=== PATIENT | female | born 1960 | race Caucasian/White ===

== ENCOUNTER 2017-08-24 15:26 | Emergency (ER) | payer OTHER ==
[2017-08-24] MEDS ORDERED: HYDROcodone/Acetaminophen 10/325 mg Tablet ONE (16:01)
--- NOTE | 2017-08-24 16:38 | CT ---
CT BRAIN WITHOUT CONTRAST 08/24/17 HISTORY: Injury. Fall. COMPARISON: None. 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 Mild atrophy. No acute hemorrhage or territorial infarction. The paranasal sinuses and mastoids are clear. IMPRESSION: No acute intracranial abnormality. POS: [facility]
--- NOTE | 2017-08-24 17:06 | CT ---
CT LUMBAR SPINE WITHOUT CONTRAST 08/24/17 HISTORY: Fall. COMPARISON: None. FINDINGS: Aortic contour is normal. No periaortic adenopathy. The paraspinal musculature is normal. No hydronep hrosis is appreciated. No acute fracture or malalignment of the lumbar spine. Moderate disc arthropathy L4-5 and L5-S1. The visualied SI joints appear unremarkable. The visualized portions of the sacrum is without fractur e. Mild bilateral neural foraminal narrowing L4-5 and L5-S1 due to posterior disc osteophyte complexe s and facet arthropathy. IMPRESSION: 1. No acute fracture or malalignment of the lumbar spine. 2. Mild neural foraminal narrowing bilaterally at L4-5 and L5-S1 due to posterior disc osteophyt e complexes and facet arthrosis. POS: [facility]
--- NOTE | 2017-08-24 17:11 | CT ---
CT THORACIC SPINE: HISTORY: Fall. TECHNIQUE: Axial images are obtained with coronal and sagittal reconstructions. FINDINGS: The thoracic spine demonstrates no evidence of acute thoracic spine fractures. Vertebral bodies and posterior elements are intact. Facets are unremarkable. The central canal and neural foramen are pa tent. IMPRESSION: Unremarkable CT thoracic spine without evidence of thoracic spine fractures. POS: [facility]
--- NOTE | 2017-08-24 17:11 | CT ---
NONCONTRAST CT CERVICAL SPINE 08/24/17 HISTORY: Injury to neck after a fall. TECHNIQUE: Contiguous axial CT images are obtained through the cervical spine from the skull base to the T2-3 le asad. Sagittal and coronal reformat images are provided. FINDINGS: There are postsurgical change related to anterior cervical fusion of the C5-6 and C6-7 levels with an terior plate and screws transfixing these levels. No hardware complication is seen. No fracture or subluxation is seen involving the cervical spine. Multilevel degenerative changes are seen with prominent facet hypertrophic changes at multiple levels. There is moderate right sided neur al foraminal narrowing at the C2-3 level related to uncinate process hypertrophy and facet degenerati ve changes. There is severe bilateral neural foraminal narrowing at C3-4 level again related to bony encroachment with facet hypertrophic changes present. Moderate to severe bilateral neural foraminal n arrowing is present at the C4-5 level again related to bone encroachment. There is uncinate process hypertrophy bilaterally at the C7-T1 level resulting in moderate to severe bilateral neural foraminal narrowing. The prevertebral soft tissues are within normal limits. Vascular calcifications are seen. IMPRESSION: 1. Multilevel degenerative changes as well as postoperative changes involving the cervical spine . No fracture or subluxation is identified. 2. Straightening of the normal cervical lordotic curvature which may be related to muscle spasm or positioning. POS: [facility]
--- NOTE | 2017-08-24 17:13 | RAD ---
FOUR VIEWS RIGHT KNEE: DATE: 08/24/17. HISTORY: Right knee injury after a fall. FINDINGS: There is no evidence of a fracture or dislocation involving the right knee. Very small suprapatellar joint effusion is present which may be physiologic in origin. No joint space narrowing is seen. IMPRESSION: No acute osseous abnormality of the right knee. POS: [facility]
== END 2017-08-24 17:37 | disposition home or self-care (01) ==
LOC: ERS 15:26
DX: S13.4XXA Sprain of ligaments of cervical spine, initial encounter (principal); S83.91XA Sprain of unspecified site of right knee, initial encounter; S30.0XXA Contusion of lower back and pelvis, initial encounter; E78.5 Hyperlipidemia, unspecified; F03.90 Unspecified dementia, unspecified severity, without behavioral disturbance, psychotic disturbance, mood disturbance, and anxiety; F17.210 Nicotine dependence, cigarettes, uncomplicated; F31.9 Bipolar disorder, unspecified; F41.9 Anxiety disorder, unspecified; I10 Essential (primary) hypertension; Z79.899 Other long term (current) drug therapy; Z71.6 Tobacco abuse counseling; W01.0XXA Fall on same level from slipping, tripping and stumbling without subsequent striking against object, initial encounter
CPT/HCPCS: 70450; 72125; 72128; 72131; 99406

== ENCOUNTER 2020-10-01 14:45 | Outpatient (CLI) | payer MEDICARE ==
[2020-10-01 16:51] LABS: Hemoglobin 12.1 g/dL (12.0-15.5); Mean Corpuscular HGB CONC 31.2 g/dL (32.0-36.0); Mean Corpuscular Hemoglobin 31.6 pg (27.0-33.0); Mean Corpuscular Volume 101.3 fl (81.6-98.3); Mean Platelet Volume 9.9 fl (7.4-10.4); Platelet Count 286 10x3/uL (150-450); RBC Distribution Width 12.7 % (11.5-14.5); Red Blood Cell (RBC) Count 3.83 10x6/uL (3.90-5.03)
[2020-10-01 16:52] LABS: Anion Gap 12 mmol/L (10-20); BUN (Urea Nitrogen) 15 mg/dL (9.8-20.1); Calc. Creatinine Clearance 0 mL/min (70-130); Calcium 8.6 mg/dL (7.8-10.44); Carbon Dioxide 28 mmol/L (22-29); Chloride 102 mmol/L (98-107); Glucose 77 mg/dL (70-105); Potassium 3.8 mmol/L (3.5-5.1); Sodium 138 mmol/L (136-145)
[2020-10-02 02:03] LABS: SARS-CoV-2 PCR by NAA Not Detected (NotDetected)
== END 2020-10-01 14:46 | disposition home or self-care (01) ==
LOC: LABBT 14:45
PROVIDERS: ATTEND Neurological Surgery
DX: Z01.818 Encounter for other preprocedural examination (principal); Z20.822 Contact with and (suspected) exposure to COVID-19; M48.02 Spinal stenosis, cervical region
CPT/HCPCS: 80048; 85027; 93005; U0003; U0005; 87635; 93010

== ENCOUNTER 2020-10-04 05:45 | Day surgery (SDC) | payer MEDICARE ==
[2020-10-03 09:21] VITALS: BMI 32.9
[2020-10-04] MEDS ORDERED: Midazolam HCl 2 mg/2 ml Vial ONE (06:19)
[2020-10-04] MEDS ORDERED: Lidocaine 2% Jelly 5 ML TUBE ONE (06:20)
[2020-10-04] MEDS ORDERED: HYDROmorphone 0.5 MG/0.5 ML SYRINGE ONE (06:20)
[2020-10-04] MEDS ORDERED: Fentanyl 100 MCG/2 ML VIAL ONE (06:20)
[2020-10-04] MEDS ORDERED: Thrombin 5000 UNITS/5 ML VIAL ONE (06:20)
[2020-10-04] MEDS ORDERED: PHENYLEPHRINE-NS 100 MCG/ML 10 ML SYRINGE ONE (07:05)
[2020-10-04] MEDS ORDERED: Ondansetron PF 4 MG/2 ML Vial ONE (07:05)
[2020-10-04] MEDS ORDERED: ePHEDrine Sulfate 50 MG/10 ML VIAL ONE (07:05)
[2020-10-04] MEDS ORDERED: Rocuronium Bromide 10 MG/ML (10ML VIAL) ONE (07:05)
[2020-10-04] MEDS ORDERED: Lidocaine 1% PF 5 ML VIAL ONE (07:05)
[2020-10-04] MEDS ORDERED: Dexamethasone 20 MG/5 ML VIAL ONE (07:05)
[2020-10-04] MEDS ORDERED: Glycopyrrolate 0.2 MG/ML 5 ML SYRINGE ONE (07:05)
[2020-10-04] MEDS ORDERED: PROPOFOL 200 MG/20 ML VIAL ONE (07:05)
[2020-10-04] MEDS ORDERED: Phenylephrine 10 MG/ML VIAL ONE (07:28)
[2020-10-04] MEDS ORDERED: SUGAMMADEX SODIUM 200 MG/2 ML VIAL ONE (08:08)
[2020-10-04] MEDS ORDERED: HYDROcodone/Acetaminophen 5/325 mg Tablet ONE ×2 (10:49→12:06)
== END 2020-10-04 12:35 | disposition home or self-care (01) ==
LOC: SDC 05:45
PROVIDERS: ATTEND Neurological Surgery
PROC: 0RG40A0 Fusion of Cervicothoracic Vertebral Joint with Interbody Fusion Device, Anterior Approach, Anterior Column, Open Approach (ICD-10-PCS; principal; 2020-10-04)
PROC: 0RT50ZZ Resection of Cervicothoracic Vertebral Disc, Open Approach (ICD-10-PCS; 2020-10-04)
DX: M47.22 Other spondylosis with radiculopathy, cervical region (principal); M47.12 Other spondylosis with myelopathy, cervical region; M48.02 Spinal stenosis, cervical region; G89.4 Chronic pain syndrome; I10 Essential (primary) hypertension; M19.90 Unspecified osteoarthritis, unspecified site; Z79.82 Long term (current) use of aspirin; Z79.899 Other long term (current) drug therapy; Z98.1 Arthrodesis status
CPT/HCPCS: 20930; 20936; 22551; 22853; 76000; C1713; C1776; J0690; J1100; J1170; J2250; J2370; J2405; J2704; J3010

== ENCOUNTER 2021-06-10 10:22 | Outpatient (CLI) | payer MEDICARE ==
[2021-06-10 16:46] LABS: SARS-CoV-2 PCR by NAA Not Detected (NotDetected)
== END 2021-06-10 10:23 | disposition home or self-care (01) ==
LOC: LABBT 10:22
PROVIDERS: ATTEND Neurological Surgery
DX: Z01.812 Encounter for preprocedural laboratory examination (principal); Z20.822 Contact with and (suspected) exposure to COVID-19
CPT/HCPCS: U0003; U0005

== ENCOUNTER 2021-06-13 08:33 | Day surgery (SDC) | payer MEDICARE ==
[2021-06-11 13:34] VITALS: BMI 33.5
[2021-06-13] MEDS ORDERED: ceFAZolin 2 GM/DEX 5% 100 ML BAG ONE (09:48)
[2021-06-13] MEDS ORDERED: Lidocaine 1% w/Epinephrine 1:100K 20 ML VIAL ONE (12:07)
[2021-06-13] MEDS ORDERED: Dexamethasone 20 MG/5 ML VIAL ONE (12:20)
[2021-06-13] MEDS ORDERED: Ondansetron PF 4 MG/2 ML Vial ONE (12:20)
[2021-06-13] MEDS ORDERED: PROPOFOL 200 MG/20 ML VIAL ONE (12:20)
[2021-06-13] MEDS ORDERED: ePHEDrine 50 MG/ML VIAL ONE (12:20)
[2021-06-13] MEDS ORDERED: Glycopyrrolate 0.2 MG/ML 5 ML SYRINGE ONE (12:20)
[2021-06-13] MEDS ORDERED: Lidocaine 1% PF 5 ML VIAL ONE (12:20)
[2021-06-13] MEDS ORDERED: Ketorolac Tromethamine 30 MG/ML VIAL ONE (12:20)
[2021-06-13] MEDS ORDERED: Fentanyl 100 MCG/2 ML VIAL ONE (12:41)
[2021-06-13] MEDS ORDERED: HYDROcodone/Acetaminophen 5/325 mg Tablet ONE (14:57)
== END 2021-06-13 16:00 | disposition home or self-care (01) ==
LOC: SDC 08:33
PROVIDERS: ATTEND Neurological Surgery
PROC: 01N50ZZ Release Median Nerve, Open Approach (ICD-10-PCS; principal; 2021-06-13)
PROC: 01N50ZZ Release Median Nerve, Open Approach (ICD-10-PCS; 2021-06-13)
DX: G56.03 Carpal tunnel syndrome, bilateral upper limbs (principal); E78.5 Hyperlipidemia, unspecified; M19.90 Unspecified osteoarthritis, unspecified site; I10 Essential (primary) hypertension; G43.909 Migraine, unspecified, not intractable, without status migrainosus; M47.819 Spondylosis without myelopathy or radiculopathy, site unspecified; M48.02 Spinal stenosis, cervical region; Z79.899 Other long term (current) drug therapy; Z98.1 Arthrodesis status
CPT/HCPCS: J1100; J1885; J2405; J2704; J3010; J3490; J7620

== ENCOUNTER 2022-07-10 13:17 | Outpatient (CLI) | payer OTHER ==
[2022-07-10 14:50] LABS: Anion Gap 12 mmol/L (10-20); BUN (Urea Nitrogen) 18 mg/dL (9.8-20.1); Calc. Creatinine Clearance 0 mL/min (70-130); Calcium 9.1 mg/dL (7.8-10.44); Carbon Dioxide 29 mmol/L (23-31); Chloride 103 mmol/L (98-107); Estimated GFR 69; Glucose 134 mg/dL (80-115); Potassium 4.1 mmol/L (3.5-5.1); Sodium 140 mmol/L (136-145)
[2022-07-10 14:51] LABS: INR-International Normal Ratio 0.9; Prothrombin Time 9.6 sec (9.5-12.1)
[2022-07-10 14:52] LABS: #Basophils 0.1 10x3/uL (0.0-0.2); #Eosinphils 0.3 10x3/uL (0.0-0.5); #Neutrophils 5.7 10x3/uL (1.5-8.4); %Basophils 0.7 % (0.0-2.0); %Eosinophils 3.2 % (0.0-6.0); %Lymphocytes 30.8 % (18.0-47.0); %Monocytes 9.4 % (0.0-10.0); %Neutrophils 55.5 % (40.0-75.0); Hemoglobin 13.4 g/dL (12.0-15.5); Mean Corpuscular HGB CONC 32.4 g/dL (32.0-36.0); Mean Corpuscular Hemoglobin 31.8 pg (27.0-33.0); Mean Corpuscular Volume 98.3 fl (81.6-98.3); Mean Platelet Volume 10.1 fl (7.4-10.4); Platelet Count 270 10x3/uL (150-450); RBC Distribution Width 11.9 % (11.5-14.5); Red Blood Cell (RBC) Count 4.21 10x6/uL (3.90-5.03); White Blood Cell (WBC) Count 10.2 10x3/uL (3.5-10.5)
== END 2022-07-10 13:18 | disposition home or self-care (01) ==
LOC: LABBT 13:17
PROVIDERS: ATTEND Orthopaedic Surgery
DX: Z01.818 Encounter for other preprocedural examination (principal); M17.11 Unilateral primary osteoarthritis, right knee
CPT/HCPCS: 80048; 85025; 85610; 87081; 93005; 93010

== ENCOUNTER 2022-07-16 07:40 | Observation (INO) | payer OTHER ==
[2022-07-15 12:51] VITALS: BMI 35.6
[2022-07-16] MEDS ORDERED: Tranexamic Acid 1,000 MG/10 ML VIAL ONE (08:34)
[2022-07-16] MEDS ORDERED: Sodium Chloride 0.9% 100 ML ONE ×2 (08:34→10:26)
[2022-07-16] MEDS ORDERED: Vancomycin (BATCH) 1.5 GRAM/300 ML BAG ONE (08:34)
[2022-07-16] MEDS ORDERED: Fentanyl 100 MCG/2 ML VIAL IV PRN (08:51)
[2022-07-16] MEDS ORDERED: traMADol HCl 50 MG TAB PO PRN ×2 (09:00)
[2022-07-16] MEDS ORDERED: HYDROcodone/Acetaminophen 10/325 mg Tablet PO PRN (09:00)
[2022-07-16] MEDS ORDERED: Promethazine HCl 25 MG/ML VIAL IM PRN ×3 (09:00→14:13)
[2022-07-16] MEDS ORDERED: Ondansetron PF 4 MG/2 ML Vial IVP PRN ×2 (09:00→14:13)
[2022-07-16] MEDS ORDERED: Ropivacaine 0.2% 550 ML 550 ML NERVE BLCK SCH (09:00)
[2022-07-16] MEDS ORDERED: Zolpidem Tartrate 5 MG TAB PO PRN ×2 (09:00→14:13)
[2022-07-16 09:10] LABS: SARS-CoV-2 NAA Rapid Test Not Detected (NotDetected)
[2022-07-16] MEDS ORDERED: Midazolam HCl 2 mg/2 ml Vial ONE (09:15)
[2022-07-16] MEDS ORDERED: Bupivacaine HCl 0.5%/Epinephrine 1:200,000/PF 30 ml Vial ONE (09:32)
[2022-07-16] MEDS ORDERED: Bupivacaine PF 0.5% 30 ML VIAL ONE ×2 (10:26→14:19)
[2022-07-16] MEDS ORDERED: CEFAZOLIN 2 GM VIAL ONE (10:26)
[2022-07-16] MEDS ORDERED: fentaNYL PF 100 MCG/2 ML SYRINGE ONE (10:29)
[2022-07-16] MEDS ORDERED: Dexamethasone 20 MG/5 ML VIAL ONE (10:37)
[2022-07-16] MEDS ORDERED: Ondansetron PF 4 MG/2 ML Vial ONE (10:37)
[2022-07-16] MEDS ORDERED: PROPOFOL 200 MG/20 ML VIAL ONE (10:37)
[2022-07-16] MEDS ORDERED: Lidocaine 1% PF 5 ML VIAL ONE (10:37)
[2022-07-16] MEDS ORDERED: ePHEDrine 50 MG/ML VIAL ONE (10:37)
[2022-07-16] MEDS ORDERED: Ondansetron HCl/PF 4 MG/2 ML Vial IVP PRN (12:15)
[2022-07-16] MEDS ORDERED: Fentanyl 100 MCG/2 ML VIAL ONE ×3 (12:40→13:58)
[2022-07-16] MEDS ORDERED: Acetaminophen 325 MG TAB PO PRN (14:13)
[2022-07-16] MEDS ORDERED: diphenhydrAMINE 25 MG CAP PO PRN (14:13)
[2022-07-16] MEDS ORDERED: Non-Formulary Item 1 EACH (Zolpidem Tartrate [Zolpidem Tartrate] 10 MG Tablet) PO PRN (14:15)
[2022-07-16] MEDS ORDERED: Primidone 50 MG TAB PO SCH (14:15)
[2022-07-16] MEDS: Ketorolac Tromethamine 30 MG/ML VIAL IVP SCH ×3 (15:37→23:43)
[2022-07-16] MEDS ORDERED: Mometasone 200 MCG/Formoterol 5 MCG 120 PUFF INHALER INH PRN (16:07)
[2022-07-16] MEDS: CEFAZOLIN 2 GM in Sodium Chloride 0.9% 100 ML IVPB SCH (17:12)
[2022-07-16] MEDS: HYDROcodone/Acetaminophen 10/325 mg Tablet PO PRN ×2 (17:20→23:47)
[2022-07-16] MEDS ORDERED: OLANZapine 5 MG TAB PO SCH (21:00)
[2022-07-16] MEDS ORDERED: Zonisamide 100 MG CAP PO SCH (21:00)
[2022-07-16] MEDS: Aspirin 81 mg Enteric Coated Tablet PO SCH (21:00)
[2022-07-16] MEDS: Trospium 20 MG TAB PO SCH (21:00)
[2022-07-16] MEDS ORDERED: Divalproex Sodium 250 MG (DR) TAB PO SCH (21:00)
[2022-07-16] MEDS ORDERED: traZODone HCl 150 MG TAB PO SCH (21:00)
[2022-07-16] MEDS ORDERED: Lithium Carbonate 150 MG CAP PO SCH (21:00)
[2022-07-16] MEDS: clonazePAM 0.5 MG TAB PO SCH (21:01)
[2022-07-16] MEDS: Senokot S 8.6-50 MG TAB PO SCH (21:02)
[2022-07-16] MEDS: Ferrous Gluconate 324 MG TAB PO SCH (21:02)
[2022-07-17] MEDS: CEFAZOLIN 2 GM in Sodium Chloride 0.9% 100 ML IVPB SCH (02:33)
[2022-07-17 05:58] LABS: Hemoglobin 11.1 g/dL (12.0-16.0); Mean Corpuscular HGB CONC 32.5 g/dL (32.0-36.0); Mean Corpuscular Hemoglobin 32.7 pg (27.0-31.0); Mean Platelet Volume 7.8 fL (7.4-10.4); Platelet Count 234 10x3/uL (130-400); RBC Distribution Width 11.3 % (11.5-14.5); White Blood Cell (WBC) Count 15.2 10x3/uL (4.8-10.8)
[2022-07-17] MEDS: Ketorolac Tromethamine 30 MG/ML VIAL IVP SCH ×2 (06:16→11:34)
[2022-07-17] MEDS: Aspirin 81 mg Enteric Coated Tablet PO SCH (08:36)
[2022-07-17] MEDS: Ferrous Gluconate 324 MG TAB PO SCH (08:36)
[2022-07-17] MEDS: clonazePAM 0.5 MG TAB PO SCH (08:37)
[2022-07-17] MEDS: Trospium 20 MG TAB PO SCH (08:37)
[2022-07-17] MEDS: Senokot S 8.6-50 MG TAB PO SCH (08:37)
[2022-07-17] MEDS: HYDROcodone/Acetaminophen 10/325 mg Tablet PO PRN ×2 (08:52→15:07)
[2022-07-17] MEDS ORDERED: Venlafaxine HCl XR 150 MG CAP PO SCH (09:00)
[2022-07-17] MEDS ORDERED: Atorvastatin Calcium 40 MG TAB PO SCH (09:00)
[2022-07-17] MEDS ORDERED: Donepezil HCl 5 MG TAB PO SCH (09:00)
[2022-07-17] MEDS ORDERED: Oxybutynin 5 MG TAB PO SCH (09:00)
[2022-07-17] MEDS ORDERED: Multivitamin W/ Minerals 1 TAB PO SCH (09:00)
[2022-07-17] MEDS ORDERED: Aspirin Chewable 81 MG TAB PO SCH (09:00)
[2022-07-17] MEDS ORDERED: Magnesium Oxide 400 MG TAB PO SCH (09:00)
[2022-07-17] MEDS ORDERED: valACYclovir 500 MG TAB PO SCH (09:00)
[2022-07-17 13:05] VITALS: BP 102/64; TEMP 98.2
== END 2022-07-17 15:34 | disposition home or self-care (01) ==
LOC: SDC 07:40 → SURG A 14:14 → INTOOBSV 07-17 04:16 → OBSVTOIN 07-17 04:16
PROVIDERS: ADMIT Orthopaedic Surgery; ATTEND Orthopaedic Surgery
PROC: 0SRC0J9 Replacement of Right Knee Joint with Synthetic Substitute, Cemented, Open Approach (ICD-10-PCS; principal; 2022-07-16)
PROC: 8E0YXBZ Computer Assisted Procedure of Lower Extremity (ICD-10-PCS; 2022-07-16)
DX: M17.11 Unilateral primary osteoarthritis, right knee (principal); F03.90 Unspecified dementia, unspecified severity, without behavioral disturbance, psychotic disturbance, mood disturbance, and anxiety; I10 Essential (primary) hypertension; K21.9 Gastro-esophageal reflux disease without esophagitis; J44.9 Chronic obstructive pulmonary disease, unspecified; Z86.73 Personal history of transient ischemic attack (TIA), and cerebral infarction without residual deficits; Z87.891 Personal history of nicotine dependence; Z79.899 Other long term (current) drug therapy; Z88.8 Allergy status to other drugs, medicaments and biological substances; Z98.1 Arthrodesis status; Z20.822 Contact with and (suspected) exposure to COVID-19
CPT/HCPCS: 20985; 27447; 73560; 85027; 94640; 96374; 96375; 96376; 97110 ×2; 97116; 97530; A4306; C1713; C1776; G0378; J3370; U0002; J1100; J1885; J2250; J2405; J2704; J2795; J3010; J3490; J7611; S0020

== ENCOUNTER 2022-07-18 04:33 | Inpatient (IN) | payer OTHER ==
[2022-07-18] MEDS ORDERED: Senokot S 8.6-50 MG TAB PO PRN (06:02)
[2022-07-18] MEDS ORDERED: Ondansetron ODT 4 MG TAB PO PRN (06:02)
[2022-07-18 06:21] VITALS: BMI 35.6
[2022-07-18] MEDS ORDERED: Non-Formulary Item 1 EACH (Budesonide/Formoterol Fumarate [Budesonide-Formoterol 160-4.5] IH PRN (07:41)
[2022-07-18] MEDS ORDERED: Primidone 50 MG TAB PO SCH (07:45)
[2022-07-18] MEDS ORDERED: Ipratropium/Albuterol 3 ML NEB NEB PRN (08:35)
[2022-07-18] MEDS ORDERED: clonazePAM 0.5 MG TAB PO SCH (09:00)
[2022-07-18] MEDS ORDERED: Non-Formulary Item 1 EACH (Magnesium Oxide [Mag-Oxide] 200 MG Tablet) PO SCH (09:00)
[2022-07-18] MEDS ORDERED: Famotidine 20 MG TAB PO SCH (09:00)
[2022-07-18] MEDS ORDERED: CLONAZEPAM 0.5 MG PO SCH (09:00)
[2022-07-18] MEDS ORDERED: Non-Formulary Item 1 EACH (Solifenacin Succinate [Vesicare] 10 MG Tab) PO SCH (09:00)
[2022-07-18 09:13] LABS: #Eosinphils 0.1 thou/uL (0.0-0.7); #Lymphocytes 2.3 thou/uL (1.20-3.40); #Monocytes 1.5 thou/uL (0.11-0.59); #Neutrophils 10.5 thou/uL (1.40-6.50); %Basophils 0.1 % (0.0-1.0); %Eosinophils 0.7 % (0.0-10.0); %Lymphocytes 15.9 % (21.0-51.0); %Monocytes 10.3 % (0.0-10.0); Hemoglobin 9.4 g/dL (12.0-16.0); Mean Corpuscular HGB CONC 33.2 g/dL (32.0-36.0); Mean Corpuscular Hemoglobin 33.1 pg (27.0-31.0); Mean Corpuscular Volume 99.8 fl (78.0-98.0); Mean Platelet Volume 7.8 fL (7.4-10.4); Platelet Count 209 10x3/uL (130-400); RBC Distribution Width 11.1 % (11.5-14.5); Red Blood Cell (RBC) Count 2.84 mill/uL (4.20-5.40); White Blood Cell (WBC) Count 14.4 10x3/uL (4.8-10.8)
[2022-07-18 09:25] LABS: Anion Gap 13 mmol/L (10-20); BUN (Urea Nitrogen) 21 mg/dL (9.8-20.1); Calc. Creatinine Clearance 113 mL/min (70-130); Calcium 8.3 mg/dL (7.8-10.44); Carbon Dioxide 26 mmol/L (23-31); Chloride 101 mmol/L (98-107); Estimated GFR 79; Glucose 121 mg/dL (80-115); Potassium 3.6 mmol/L (3.5-5.1); Sodium 136 mmol/L (136-145)
[2022-07-18 09:27] LABS: ALT (SGPT) Less than 7 U/L (8-55); AST (SGOT) 16 U/L (5-34); Albumin 3.3 g/dL (3.4-4.8); Alkaline Phosphatase 59 U/L (40-110); Anion Gap 13 mmol/L (10-20); BUN (Urea Nitrogen) 19 mg/dL (9.8-20.1); Bilirubin, Total 0.5 mg/dL (0.2-1.2); Calc. Creatinine Clearance 113 mL/min (70-130); Calcium 8.1 mg/dL (7.8-10.44); Carbon Dioxide 26 mmol/L (23-31); Chloride 102 mmol/L (98-107); Estimated GFR 79; Globulin 1.9 g/dL (2.4-3.5); Glucose 119 mg/dL (80-115); Potassium 3.7 mmol/L (3.5-5.1); Protein, Total 5.2 g/dL (5.8-8.1); Sodium 137 mmol/L (136-145)
[2022-07-18] MEDS ORDERED: Cefepime 2 GM in Sodium Chloride 0.9% 100 ML IVPB SCH (10:02)
[2022-07-18] MEDS ORDERED: guaiFENesin 200 MG TAB PO PRN (10:16)
[2022-07-18] MEDS: valACYclovir 500 MG TAB PO SCH (10:23)
[2022-07-18] MEDS: Trospium 20 MG TAB PO SCH ×2 (10:23→22:11)
[2022-07-18] MEDS: Venlafaxine HCl XR 150 MG CAP PO SCH (10:23)
[2022-07-18] MEDS: Magnesium Oxide 400 MG TAB PO SCH (10:24)
[2022-07-18] MEDS: Donepezil HCl 5 MG TAB PO SCH (10:24)
[2022-07-18] MEDS: Atorvastatin Calcium 40 MG TAB PO SCH (10:24)
[2022-07-18 11:17] LABS: Acetaminophen Less than 10.0 mcg/mL (10.0-30.0); Alcohol Less than 10 mg/dL (Less than 10); Salicylate Less than 8.0 mg/dL (15.0-30.0)
[2022-07-18] MEDS: Ipratropium/Albuterol 3 ML NEB NEB SCH ×3 (14:37→19:16)
[2022-07-18 15:10] LABS: Bacteria/HPF None Seen HPF (None Seen); Bilirubin Negative (Negative); Blood, Urine Negative (Negative); Clarity Clear (Clear); Glucose, Urine (Dipstick) Normal (Negative); Ketone, Urine Negative (Negative); Leukocyte Negative Leu/uL (Negative); Nitrite Negative (Negative); Protein, Urine (Dipstick) Negative (Neg-Trace); RBC/HPF 0-3 HPF (0-3); Specific Gravity, Urine 1.015 (1.002-1.036); Squamous Epithelial None Seen HPF (0-3); Urobilinogen Normal mg/dL (Less than 2); WBC/HPF 0-3 HPF (0-3); pH, Urine 6.5 (5.0-9.0)
[2022-07-18 15:25] LABS: Amphetamine Not Detected (NotDetected); Barbiturates Screen Detected (NotDetected); Benzodiazepine Screen Not Detected (NotDetected); Cocaine Metabolite Screen Not Detected (NotDetected); Methadone Not Detected (NotDetected); Methamphetamine Not Detected (NotDetected); Opiate Screen Detected (NotDetected); Oxycodone Screen Not Detected (NotDetected); Phencyclidine (PCP) Not Detected (NotDetected); THC/Cannabinoid Screen Not Detected (NotDetected); Tricyclic Screen Not Detected (NotDetected)
[2022-07-18] MEDS: Mometasone 200 MCG/Formoterol 5 MCG 120 PUFF INHALER INH SCH (20:00)
[2022-07-18] MEDS ORDERED: traZODone HCl 150 MG TAB PO SCH ×2 (21:00)
[2022-07-18] MEDS ORDERED: Non-Formulary Item 1 EACH (Olanzapine [Zyprexa] 10 MG Tablet) PO SCH (21:00)
[2022-07-18] MEDS ORDERED: Non-Formulary Item 1 EACH (Lithium Carbonate [Lithium Carbonate] 300 MG Tablet) PO SCH (21:00)
[2022-07-18] MEDS: Cefepime 2 GM in Sodium Chloride 0.9% 100 ML IVPB SCH (21:06)
[2022-07-18] MEDS: Divalproex Sodium 250 MG (DR) TAB PO SCH (22:10)
[2022-07-18] MEDS: Aspirin 81 mg Enteric Coated Tablet PO SCH (22:10)
[2022-07-18] MEDS: OLANZapine 5 MG TAB PO SCH (22:11)
[2022-07-18] MEDS: Zonisamide 100 MG CAP PO SCH (22:11)
[2022-07-18] MEDS: Famotidine 20 MG TAB PO SCH (22:11)
[2022-07-18] MEDS: VANCOMYCIN 2 GRAM/500 ML BAG 2 GM in Premix Bag 1 BAG IVPB SCH (23:34)
[2022-07-19] MEDS: Ipratropium/Albuterol 3 ML NEB NEB SCH ×7 (00:01→23:08)
[2022-07-19] MEDS: VANCOMYCIN 2 GRAM/500 ML BAG 2 GM in Premix Bag 1 BAG IVPB SCH ×3 (03:41→15:06)
[2022-07-19] MEDS: Mometasone 200 MCG/Formoterol 5 MCG 120 PUFF INHALER INH SCH ×2 (06:35→19:37)
[2022-07-19] MEDS: Venlafaxine HCl XR 150 MG CAP PO SCH (09:26)
[2022-07-19] MEDS: Cefepime 2 GM in Sodium Chloride 0.9% 100 ML IVPB SCH ×2 (09:26→21:39)
[2022-07-19] MEDS: Trospium 20 MG TAB PO SCH ×2 (09:27→21:40)
[2022-07-19] MEDS: valACYclovir 500 MG TAB PO SCH (09:27)
[2022-07-19] MEDS: Magnesium Oxide 400 MG TAB PO SCH (09:28)
[2022-07-19] MEDS: Atorvastatin Calcium 40 MG TAB PO SCH (09:28)
[2022-07-19] MEDS: Donepezil HCl 5 MG TAB PO SCH (09:28)
[2022-07-19] MEDS: Aspirin 81 mg Enteric Coated Tablet PO SCH ×2 (09:28→21:40)
[2022-07-19] MEDS: Famotidine 20 MG TAB PO SCH ×2 (09:29→21:41)
[2022-07-19] MEDS: Acetaminophen 325 MG TAB PO PRN ×2 (09:29→17:42)
[2022-07-19] MEDS: Divalproex Sodium 250 MG (DR) TAB PO SCH (21:40)
[2022-07-19] MEDS: Zonisamide 100 MG CAP PO SCH (21:40)
[2022-07-19] MEDS: OLANZapine 5 MG TAB PO SCH (21:40)
[2022-07-20] MEDS: Ipratropium/Albuterol 3 ML NEB NEB SCH ×4 (02:34→19:06)
[2022-07-20] MEDS: VANCOMYCIN 2 GRAM/500 ML BAG 2 GM in Premix Bag 1 BAG IVPB SCH (02:50)
[2022-07-20 04:22] LABS: #Eosinphils 0.3 thou/uL (0.0-0.7); #Lymphocytes 3.4 thou/uL (1.20-3.40); #Monocytes 1.4 thou/uL (0.11-0.59); #Neutrophils 7.7 thou/uL (1.40-6.50); %Basophils 0.3 % (0.0-1.0); %Eosinophils 2.3 % (0.0-10.0); %Lymphocytes 26.8 % (21.0-51.0); %Monocytes 10.6 % (0.0-10.0); %Neutrophils 59.9 % (42.0-75.0); Hemoglobin 9.6 g/dL (12.0-16.0); Mean Corpuscular Hemoglobin 32.7 pg (27.0-31.0); Mean Corpuscular Volume 99.1 fl (78.0-98.0); Mean Platelet Volume 7.9 fL (7.4-10.4); Platelet Count 274 10x3/uL (130-400); Red Blood Cell (RBC) Count 2.93 mill/uL (4.20-5.40); White Blood Cell (WBC) Count 12.8 10x3/uL (4.8-10.8)
[2022-07-20 04:51] LABS: Vancomycin, Trough 33.8 ug/mL
[2022-07-20] MEDS: Mometasone 200 MCG/Formoterol 5 MCG 120 PUFF INHALER INH SCH ×2 (06:19→19:08)
[2022-07-20] MEDS: Trospium 20 MG TAB PO SCH ×2 (08:29→21:41)
[2022-07-20] MEDS: valACYclovir 500 MG TAB PO SCH (08:29)
[2022-07-20] MEDS: Venlafaxine HCl XR 150 MG CAP PO SCH (08:29)
[2022-07-20] MEDS: Donepezil HCl 5 MG TAB PO SCH (08:29)
[2022-07-20] MEDS: Atorvastatin Calcium 40 MG TAB PO SCH (08:29)
[2022-07-20] MEDS: Cefepime 2 GM in Sodium Chloride 0.9% 100 ML IVPB SCH (08:30)
[2022-07-20] MEDS: Magnesium Oxide 400 MG TAB PO SCH (08:30)
[2022-07-20] MEDS: Famotidine 20 MG TAB PO SCH ×2 (08:30→21:42)
[2022-07-20] MEDS: Aspirin 81 mg Enteric Coated Tablet PO SCH ×2 (08:30→21:42)
[2022-07-20] MEDS: Acetaminophen 325 MG TAB PO PRN ×4 (08:30→21:41)
[2022-07-20 14:37] LABS: Vancomycin, Trough 24.9 ug/mL
[2022-07-20] MEDS: OLANZapine 5 MG TAB PO SCH (21:40)
[2022-07-20] MEDS: Zonisamide 100 MG CAP PO SCH (21:42)
[2022-07-20] MEDS: Divalproex Sodium 250 MG (DR) TAB PO SCH (21:42)
[2022-07-21] MEDS: Ipratropium/Albuterol 3 ML NEB NEB SCH ×2 (06:51→12:09)
[2022-07-21] MEDS: Mometasone 200 MCG/Formoterol 5 MCG 120 PUFF INHALER INH SCH (06:52)
[2022-07-21 08:19] VITALS: TEMP 98.3
[2022-07-21] MEDS: Donepezil HCl 5 MG TAB PO SCH (09:58)
[2022-07-21] MEDS: Aspirin 81 mg Enteric Coated Tablet PO SCH (09:58)
[2022-07-21] MEDS: Venlafaxine HCl XR 150 MG CAP PO SCH (10:00)
[2022-07-21] MEDS ORDERED: Amlodipine 10 MG TAB PO SCH (10:00)
[2022-07-21] MEDS: Trospium 20 MG TAB PO SCH (10:00)
[2022-07-21] MEDS ORDERED: Amlodipine 5 MG TAB PO SCH (10:00)
[2022-07-21] MEDS: valACYclovir 500 MG TAB PO SCH (10:01)
[2022-07-21] MEDS: Famotidine 20 MG TAB PO SCH (10:01)
[2022-07-21] MEDS: Atorvastatin Calcium 40 MG TAB PO SCH (10:02)
[2022-07-21] MEDS: Acetaminophen 325 MG TAB PO PRN ×2 (10:02→13:54)
[2022-07-21] MEDS: Magnesium Oxide 400 MG TAB PO SCH (10:02)
[2022-07-21 12:01] VITALS: BP 154/72
[2022-07-22] MEDS ORDERED: Amlodipine 5 MG TAB PO SCH (09:00)
== END 2022-07-21 16:50 | disposition home health service (06) | DRG 93 ==
LOC: SURG A 05:46
PROVIDERS: ADMIT Student in an Organized Health Care Education/Training Program; ATTEND Family Medicine
DX: G92.8 Other toxic encephalopathy (principal); T39.8X5A Adverse effect of other nonopioid analgesics and antipyretics, not elsewhere classified, initial encounter; T50.995A Adverse effect of other drugs, medicaments and biological substances, initial encounter; R50.82 Postprocedural fever; Z96.651 Presence of right artificial knee joint; D64.9 Anemia, unspecified; I10 Essential (primary) hypertension; J44.9 Chronic obstructive pulmonary disease, unspecified; F31.9 Bipolar disorder, unspecified; F03.90 Unspecified dementia, unspecified severity, without behavioral disturbance, psychotic disturbance, mood disturbance, and anxiety; M06.9 Rheumatoid arthritis, unspecified; E78.5 Hyperlipidemia, unspecified; Z79.899 Other long term (current) drug therapy; Z79.82 Long term (current) use of aspirin; Z88.8 Allergy status to other drugs, medicaments and biological substances; Z90.710 Acquired absence of both cervix and uterus; Z98.1 Arthrodesis status
CPT/HCPCS: 36415; 71045; 72125; 80048; 80143; 80178; 80179; 80202; 80306; 80307; 81001; 82140; 83605; 85025; 87040; 87086; 93970; 94640; J0692; J3370; J3490; J7620

== ENCOUNTER 2023-06-02 10:31 | Outpatient (CLI) | payer OTHER ==
[2023-06-02 12:33] LABS: Hemoglobin 13.6 g/dL (12.0-15.5); Mean Corpuscular HGB CONC 32.4 g/dL (32.0-36.0); Mean Corpuscular Hemoglobin 32.2 pg (27.0-33.0); Mean Corpuscular Volume 99.5 fl (81.6-98.3); Mean Platelet Volume 10.4 fl (7.4-10.4); Platelet Count 316 10x3/uL (150-450); RBC Distribution Width 12.2 % (11.5-14.5); Red Blood Cell (RBC) Count 4.22 10x6/uL (3.90-5.03); White Blood Cell (WBC) Count 10.5 10x3/uL (3.5-10.5)
[2023-06-02 13:04] LABS: Anion Gap 16 mmol/L (10-20); BUN (Urea Nitrogen) 17 mg/dL (9.8-20.1); Calc. Creatinine Clearance 0 mL/min (70-130); Calcium 9.8 mg/dL (7.8-10.44); Carbon Dioxide 30 mmol/L (23-31); Chloride 98 mmol/L (98-107); Estimated GFR 80; Glucose 93 mg/dL (80-115); Potassium 3.8 mmol/L (3.5-5.1); Sodium 140 mmol/L (136-145)
== END 2023-06-02 10:32 | disposition home or self-care (01) ==
LOC: LABBT 10:31
PROVIDERS: ATTEND Neurological Surgery
DX: Z01.818 Encounter for other preprocedural examination (principal); M54.12 Radiculopathy, cervical region
CPT/HCPCS: 80048; 85027; 93005; 93010

== ENCOUNTER 2023-06-09 05:47 | Day surgery (SDC) | payer OTHER ==
[2023-06-02 10:52] VITALS: BMI 36.3
[2023-06-09] MEDS ORDERED: Fentanyl 250 MCG/5 ML VIAL ONE (06:15)
[2023-06-09] MEDS ORDERED: Lidocaine 1% PF 5 ML VIAL ONE ×2 (06:15→06:42)
[2023-06-09] MEDS ORDERED: PROPOFOL 20 ML ONE (06:15)
[2023-06-09] MEDS ORDERED: Rocuronium Bromide 10 MG/ML (10ML VIAL) ONE ×2 (06:15→06:42)
[2023-06-09] MEDS ORDERED: EPINEPHrine 1 MG/ML VIAL ONE (06:17)
[2023-06-09] MEDS ORDERED: Vancomycin 1 GM VIAL ONE (06:17)
[2023-06-09] MEDS ORDERED: Thrombin 5000 UNITS/5 ML VIAL ONE (06:18)
[2023-06-09] MEDS ORDERED: Bupivacaine PF 0.5% 30 ML VIAL ONE (06:18)
[2023-06-09] MEDS ORDERED: Sodium Chloride 0.9% 100 ML ONE ×2 (06:36→10:52)
[2023-06-09] MEDS ORDERED: CEFAZOLIN 2 GM VIAL ONE ×2 (06:36→10:52)
[2023-06-09] MEDS ORDERED: Dexamethasone 20 MG/5 ML VIAL ONE ×3 (06:42→10:02)
[2023-06-09] MEDS ORDERED: Albuterol HFA (OR) 200 PUFF INH ONE (06:42)
[2023-06-09] MEDS ORDERED: Ondansetron PF 4 MG/2 ML Vial ONE ×3 (06:42→10:02)
[2023-06-09] MEDS ORDERED: PROPOFOL 200 MG/20 ML VIAL ONE (06:42)
[2023-06-09] MEDS ORDERED: Famotidine/PF 20 mg/2ml Vial ONE (06:43)
[2023-06-09] MEDS ORDERED: Midazolam HCl 2 mg/2 ml Vial ONE (06:57)
[2023-06-09] MEDS ORDERED: Sevoflurane 250 ML INH ANEST BOTTLE ONE (07:38)
[2023-06-09] MEDS ORDERED: SUGAMMADEX SODIUM 200 MG/2 ML VIAL ONE (07:58)
[2023-06-09] MEDS ORDERED: Lidocaine 2% PF 5 ML VIAL ONE (08:00)
[2023-06-09] MEDS ORDERED: Ondansetron HCl/PF 4 MG/2 ML Vial IVP PRN (08:01)
[2023-06-09] MEDS ORDERED: Promethazine HCl 25 MG/ML VIAL IM PRN (08:01)
[2023-06-09] MEDS ORDERED: hydrALAZINE 20 MG/ML VIAL ONE (08:31)
[2023-06-09] MEDS ORDERED: hydrALAZINE 20 MG/ML VIAL SLOW IVP SCH (08:45)
[2023-06-09] MEDS ORDERED: fentaNYL 50 mcg/mL 1 mL Vial ONE ×2 (09:28→10:07)
[2023-06-09] MEDS ORDERED: fentaNYL PF 100 MCG/2 ML SYRINGE ONE (09:32)
[2023-06-09] MEDS ORDERED: MINERAL OIL/WHITE PETROLATUM 3.5 GM TUBE ONE (09:44)
[2023-06-09] MEDS ORDERED: Glycopyrrolate 0.2 MG/ML 5 ML SYRINGE ONE (10:16)
[2023-06-09] MEDS ORDERED: ePHEDrine Sulfate 50 MG/10 ML VIAL ONE (10:26)
[2023-06-09] MEDS ORDERED: Acetaminophen/Codeine 30-300mg Tablet ONE (12:32)
== END 2023-06-09 13:52 | disposition home or self-care (01) ==
LOC: SDC 05:47
PROVIDERS: ATTEND Neurological Surgery
PROC: 0RG10A0 Fusion of Cervical Vertebral Joint with Interbody Fusion Device, Anterior Approach, Anterior Column, Open Approach (ICD-10-PCS; principal; 2023-06-09)
DX: M43.12 Spondylolisthesis, cervical region (principal); M54.12 Radiculopathy, cervical region; F03.90 Unspecified dementia, unspecified severity, without behavioral disturbance, psychotic disturbance, mood disturbance, and anxiety; M19.90 Unspecified osteoarthritis, unspecified site; I10 Essential (primary) hypertension; F31.9 Bipolar disorder, unspecified; Z90.49 Acquired absence of other specified parts of digestive tract; Z90.710 Acquired absence of both cervix and uterus; Z96.659 Presence of unspecified artificial knee joint; Z79.899 Other long term (current) drug therapy
CPT/HCPCS: 20930; 20936; 22551; 22845; 22853; J0360; J3010; C1713; C1889; J0171; J1100; J2001; J2250; J2405; J2704; J3370; J3490; S0020; S0028